=== PATIENT | female | born 1995 | race Caucasian/White ===

== ENCOUNTER 2021-02-10 10:03 | Inpatient (IN) | payer MEDICAID ==
[2021-02-10] MEDS ORDERED: Sodium Chloride 0.9% 10 ML Syringe FLUSH PRN (10:42)
[2021-02-10] MEDS ORDERED: Oxytocin/Lactated Ringers 10 UNIT/1,000 ML BAG IV SCH ×2 (10:45)
[2021-02-10] MEDS: Lactated Ringers 1,000 ML IV SCH ×3 (12:11→22:25)
--- NOTE | 2021-02-10 15:20 | PCM.LDHP ---
L&D History of Present Illness - General Date of Service: 02/10/21 Admit Problem/Dx: Patient Status Order with Admit Dx/Problem 02/10/21 10:48 Admission Status [Patient Status] [ADT] Routine Admission Diagnosis/Problem Admission Diagnosis/Problem Source of Information: Patient History Limitations: Reports: No Limitations - History of Present Illness Introduction:: Kenia Tran is a 25-year-old G1, P0 at 38 weeks 0 days (SUNIL 02/24/2021) by LMP consistent with early ultrasound who presents for evaluation in the setting of spontaneous rupture membranes. She reports that at around 5 AM she had a large gush of clear fluid with continuous leaking of fluid afterwards. She started having contractions that were about 10 to 12 minutes apart that would alternate between very strong and mild cramping. She denies any vaginal bleeding. Reports good movement. She was seen in the office yesterday, 02/09/2021, and was 1 cm dilated at that time. Timing/Duration: Reports: sudden onset (With large gush of fluid at 5 AM), constant/continuous (Leaking of fluid since initial gush of fluid), intermittent (Contractions every 10 to 12 minutes) Location, : Reports: Pelvic Quality: Reports: Pressure, Throbbing Severity: Moderate Improves with: Reports: None Worsens with: Reports: None Associated Symptoms: Reports: vaginal fluid, moderate amount. Denies: vaginal bleeding, vaginal discharge Present Illness Comments:: Kenia Tran is a 25-year-old G1, P0 at 38 weeks 0 days (SUNIL 02/24/2021) by LMP consistent with early ultrasound who presents with spontaneous rupture membranes. She started care in [place] and transferred care to Dr. Gonzalez at 28 weeks gestational age. Her has been overall uncomplicated but she did have an elevated 1 hour glucose tolerance test within normal 3-hour glucose tolerance test. Patient had echocardiogram done that was normal due to a history of ASD repair when she was an infant. echocardiogram was normal. She was followed by Dr. Bosch due to the history of ASD repair. She received Tdap vaccine on 12/08/2020. Her is complicated by: * Patient with personal history of ASD that was repaired as an at age 5. No significant abnormalities noted on echocardiogram for the patient without any evidence of pulmonary hypertension. Normal echocardiogram done during this . * Elevated 1 hour glucose tolerance test with normal 3-hour glucose tolerance test ENVIRONMENTAL HEALTH SAFETY ENGINEER history G1: Current labs Blood type: O+ Antibody screen: Negative First trimester hematocrit/hemoglobin: 41.0%/13.4 on 08/18/2020 Platelets: 348 on 08/18/2020 Rubella status: Immune Hepatitis B surface antigen: Negative RPR: Negative HIV: Negative Gonorrhea: Negative Chlamydia: Negative Genetic screening: Normal noninvasive genetic screening testing One hour glucose tolerance test: 145 Second trimester hemoglobin: 11.4 on 01/05/2021 Platelets: 322 on 01/05/2021 3-hour glucose tolerance test: Fasting 88, 1 hour 163, 2-hour 127, 3-hour 98 GBS status: Negative - Related Data Allergies/Adverse Reactions: Allergies Allergy/AdvReac Type Severity Reaction Status Date / Time No Known Allergies Allergy Verified 02/10/21 10:13 Home Medications: Home Meds Loratadine [Claritin] 10 mg PO DAILY 02/10/21 [History] #103/Iron Fumarate/Fa [ ] 1 each PO DAILY 02/10/21 [History] Past Medical History Cardiovascular History: Reports: Other (See Below) Other Cardiovascular History: ASD repair age 5 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: : 1 Para: 0 - Past Surgical History HEENT Surgical History: Reports: Adenoidectomy, Tonsillectomy Cardiovascular Surgical History: Reports: Other (See Below) Other Cardiovascular Surgeries/Procedures: ASD repair age 5 Social & Family History - Family History Family Medical History: No Pertinent Family History - Tobacco Use Tobacco Use Status *Q: Never Tobacco User Second Hand Smoke Exposure: No - Tobacco Core Measures Tobacco Use/Smoking Within Last 30 Days: No Smokeless Tobacco Use in Last 30 Days: Yes Smokeless Tobacco Use History: Other (Nicotine pouches) Desires Tobacco Cessation Medication: Refuses FDA Approved Med - Caffeine Use Caffeine Use: Reports: None - Alcohol Use Alcohol Use History: No Alcohol Use in Last Twelve Months: No - Recreational Drug Use Recreational Drug Use: No - Living Situation & Occupation Living situation: Reports: , with Spouse H&P Review of Systems - Review of Systems: Review Of Systems: See Below General: Denies: Fever, Chills, Malaise, Weakness, Fatigue HEENT: Denies: Headaches, Rhinitis, Post Nasal Drip, Sinus Congestion, Sore Throat, Visual Changes Pulmonary: Denies: Shortness of Breath, Wheezing, Pleuritic Chest Pain, Cough Cardiovascular: Denies: Chest Pain, Palpitations, Dyspnea on Exertion, Orthopnea Gastrointestinal: Denies: Abdominal Pain, Constipation, Diarrhea, Nausea, Vo miting Genitourinary: Denies: Dysuria, Frequency, Burning, Pain, Urgency Musculoskeletal: Reports: Back Pain (And hip pain of ) Skin: Denies: Rash, Lesions Psychiatric: Denies: Depression, Anxiety L&D Exam - Exam Exam: See Below - Vital Signs Vital Signs: Last Vital Signs Temp 36.9 C 02/10/21 10:14 Pulse 92 02/10/21 10:14 Resp 15 02/10/21 10:14 BP 128/83 02/10/21 10:14 Pulse Ox 98 02/10/21 10:14 Weight: 100.244 kg - OB Specific Contraction Duration (sec): 45-60 Contraction Frequency (min): 2-4 Contraction Intensity: Moderate Movement: Active Heart Tones: Present Heart Tones per Min: 130 (+15 x 15 accelerations, no decelerations) Heart Rate (FHR) Variability: Moderate (6-25 bmp) Presentation: Vertex Estimated Weight: 7.5-8 pounds by Obed - Vergara Score Vergara Score Cervix Position: Anterior Vergara Score Consistency: Soft Vergara Score Effacement: >80% (90%) Vergara Score Dilation: 1-2 cm (2 cm) Vergara Score Infant's Station: -2 Vergara Score Total: 9 - Exam General: Alert, Oriented HEENT: Conjunctiva Clear, EOMI Neck: Supple, Trachea Midline Lungs: Clear to Auscultation, Normal Respiratory Effort Cardiovascular: Regular Rate, Regular Rhythm GI/Abdominal Exam: Soft, Non-Tender, No Distention, Other (Gravid). No: Guarding, Rigid, Rebound Genitourinary: Normal external exam Extremities: Normal Inspection, No Pedal Edema Skin: Warm, Dry, Intact Psychiatric: Alert, Normal Affect, Normal Mood - Patient Data Lab Results Last 24 hrs: Laboratory Results - last 24 hr 02/10/21 02/10/21 02/10/21 Range/Units 10:42 11:05 11:13 WBC 9.82 (3.98-10.04) K/mm3 RBC 4.06 (3.98-5.22) M/mm3 Hgb 11.2 (11.2-15.7) gm/dl Hct 34.5 (34.1-44.9) % MCV 85.0 (79.4-94.8) fl MCH 27.6 (25.6-32.2) pg MCHC 32.5 (32.2-35.5) g/dl RDW Std Deviation 40.6 (36.4-46.3) fL Plt Count 312 (182-369) K/mm3 MPV 9.5 (9.4-12.3) fl Neut % (Auto) 73.8 H (34.0-71.1) % Lymph % (Auto) 16.1 L (19.3-51.7) % [place] % (Auto) 8.2 (4.7-12.5) % Eos % (Auto) 1.1 (0.7-5.8) Baso % (Auto) 0.2 (0.1-1.2) % Neut # (Auto) 7.24 H (1.56-6.13) K/mm3 Lymph # (Auto) 1.58 (1.18-3.74) K/mm3 [place] # (Auto) 0.81 H (0.24-0.36) K/mm3 Eos # (Auto) 0.11 (0.04-0.36) K/mm3 Baso # (Auto) 0.02 (0.01-0.08) K/mm3 SARS-CoV-2 RNA (AMINAH) Negative (NEGATIVE) Blood Type O POSITIVE Gel Antibody Screen Negative Result Diagrams: 02/10/21 11:13 - Problem List (1) 38 weeks gestation of SNOMED Code(s): 34444065 ICD Code: Z3A.38 - 38 WEEKS GESTATION OF Status: Acute Current Visit: Yes (2) Obesity affecting SNOMED Code(s): 350730122691, 031841265670 ICD Code: O99.210 - OBESITY COMPLICATING , UNSPECIFIED TRIMESTER Status: Acute Current Visit: Yes (3) History of atrial septal defect SNOMED Code(s): 096012512 ICD Code: Z86.79 - PERSONAL HISTORY OF OTHER DISEASES OF THE CIRCULATORY SYSTEM Status: Acute Current Visit: Yes (4) History of atrial septal defect repair SNOMED Code(s): 305208705 ICD Code: Z87.74 - PERSONAL HISTORY OF CONGENITAL MALFORM OF HEART AND CIRC SYS Status: Acute Current Visit: Yes Problem List Initiated/Reviewed/Updated: Yes Orders Last 24hrs: Active Orders 24 hr Category Date Time Status Admission Status [Patient Status] [ADT] Routine ADT 02/10/21 10:48 Active Activity as Tolerated [RC] PFP Care 02/10/21 10:42 Active Communication Order [RC] ASDIRECTED Care 02/10/21 10:42 Active Heart Tones [RC] ASDIRECTED Care 02/10/21 10:45 Active Non Stress Test [RC] PER UNIT ROUTINE Care 02/10/21 10:14 Active Notify Provider [RC] PFP Care 02/10/21 10:42 Active Notify Provider [RC] PRN Care 02/10/21 10:42 Active Peripheral IV Care [RC] . DIRECTED Care 02/10/21 10:45 Active Pump Management, Intrathecal [RC] ASDIRECTED Care 02/10/21 10:45 Active Urinary Catheter Assessment [RC] ASDIRECTED Care 02/10/21 10:42 Active Vital Signs [RC] PER UNIT ROUTINE Care 02/10/21 10:14 Active Regular Diet [DIET] Diet 02/10/21 Breakfast Active PATIENT RETYPE [BBK] Routine Lab 02/10/21 12:36 Ordered RAPID PLASMA REAGIN,RPR [CHEM] Routine Lab 02/10/21 10:42 Ordered Lactated Ringers [Ringers, Lactated] 1,000 ml Med 02/10/21 10:45 Active IV ASDIRECTED Nalbuphine [Nubain] Med 02/10/21 10:42 Active 10 mg IVPUSH Q2H PRN Oxytocin/Lactated Ringers [Pitocin in LR 10 Units/1,000 Med 02/10/21 10:45 Active ML] 10 unit in 1,000 ml IV .CONTINUOUS Oxytocin/Lactated Ringers [Pitocin in LR 10 Units/1,000 Med 02/10/21 10:45 Active ML] 10 unit in 1,000 ml IV TITRATE Sodium Chloride 0.9% [Saline Flush] Med 02/10/21 10:42 Active 10 ml FLUSH ASDIRECTED PRN Electronic Heart Tones Ext w TOCO [WOMSER] Oth 02/10/21 10:42 Ordered Routine Peripheral IV Insertion Adult [OM.PC] Routine Oth 02/10/21 10:42 Ordered Resuscitation Status Routine Resus Stat 02/10/21 10:14 Ordered Medication Orders Lactated Ringer's (Ringers, Lactated) 1,000 mls @ 100 mls/hr IV ASDIRECTED FLORES Last Admin: 02/10/21 12:11 Dose: 100 mls/hr Documented by: BROOKE Oxytocin/Lactated Ringer's (Pitocin In Lr 10 Units/1,000 Ml) 10 unit in 1,000 mls @ 12 mls/hr IV TITRATE FLORES; Protocol Last Titration: 02/10/21 13:30 Dose: 6 munits/min, 36 mls/hr Documented by: Titration: 02/10/21 13:00 Dose: 4 munits/min, 24 mls/hr Documented by: Admin: 02/10/21 12:12 Dose: 2 munits/min, 12 mls/hr Documented by: BROOKE Oxytocin/Lactated Ringer's (Pitocin In Lr 10 Units/1,000 Ml) 10 unit in 1,000 mls @ 500 mls/hr IV .CONTINUOUS FLORES Nalbuphine HCl (Nalbuphine 10 Mg/1 Ml Vial) 10 mg IVPUSH Q2H PRN PRN Reason: Pain Sodium Chloride (Sodium Chloride 0.9% 10 Ml Syringe) 10 ml FLUSH ASDIRECTED PRN PRN Reason: Keep Vein Open Assessment/Plan Comment:: Kenia Tran is a 25-year-old female at 38 weeks 0 days with spontaneous rupture membranes complicated by history of ASD with repair at age 5 and no residual effects, elevated 1 hour glucose tolerance test with normal 3-hour glucose tolerance test and obesity in Refer to observation for spontaneous rupture of membranes Patient on Pitocin for augmentation of labor with minimal contractions on initial presentation Continuous monitoring Place IV and have Lactated Ringer's at 125 ml/hr May have small amounts of regular diet Activity as tolerated May have epidural as desired Plans to breast-feed after delivery Anticipate vaginal delivery unless otherwise indicated Kaden Ford MD 3:38 PM 02/10/2021
[2021-02-10] MEDS: Nalbuphine 10 MG/1 ML Vial IVPUSH PRN ×2 (17:35→21:00)
[2021-02-10] MEDS ORDERED: Ondansetron 4 MG/2 ML SDV IVPUSH PRN (18:44)
[2021-02-10] MEDS ORDERED: fentaNYL 100 MCG/2 ML SDV EPIDUR ONE (21:34)
[2021-02-10] MEDS ORDERED: diphenhydrAMINE 50 MG/ML SDV IVPUSH PRN (21:39)
[2021-02-10] MEDS ORDERED: ePHEDrine 50 MG/ML SDV IVPUSH PRN (21:39)
[2021-02-10] MEDS ORDERED: Bupivacaine/fentaNYL/NS 100 ML Bag EPIDUR SCH (21:45)
--- NOTE | 2021-02-10 22:18 | PCM.PREANE ---
Preanesthetic Assessment - Procedure Proposed Procedure: epidural - Anesthesia/Transfusion/Family Hx Anesthesia History: Prior Anesthesia Without Reaction Family History of Anesthesia Reaction: No Transfusion History: No Prior Transfusion(s) - Review of Systems General: Fatigue, Malaise Pulmonary: No Symptoms Cardiovascular: No Symptoms Gastrointestinal: Abdominal Pain (labor) Neurological: No Symptoms Other: Reports: None - Physical Assessment Vital Signs: Last Vital Signs Temp 36.9 C 02/10/21 10:14 Pulse 92 02/10/21 10:14 Resp 15 02/10/21 10:14 BP 128/83 02/10/21 10:14 Pulse Ox 98 02/10/21 10:14 Height: 1.6 m Weight: 100.244 kg ASA Class: 2 Mental Status: Alert & Oriented x3 Airway Class: Mallampati = 2 Dentition: Reports: Normal Dentition Thyro-Mental Finger Breadths: 3 Mouth Opening Finger Breadths: 3 ROM/Head Extension: Full Lungs: Clear to Auscultation, Normal Respiratory Effort Cardiovascular: Regular Rate, Regular Rhythm - Lab Values: Laboratory Last Values WBC 9.82 K/mm3 (3.98-10.04) 02/10/21 11:13 RBC 4.06 M/mm3 (3.98-5.22) 02/10/21 11:13 Hgb 11.2 gm/dl (11.2-15.7) 02/10/21 11:13 Hct 34.5 % (34.1-44.9) 02/10/21 11:13 MCV 85.0 fl (79.4-94.8) 02/10/21 11:13 MCH 27.6 pg (25.6-32.2) 02/10/21 11:13 MCHC 32.5 g/dl (32.2-35.5) 02/10/21 11:13 RDW Std Deviation 40.6 fL (36.4-46.3) 02/10/21 11:13 Plt Count 312 K/mm3 (182-369) 02/10/21 11:13 MPV 9.5 fl (9.4-12.3) 02/10/21 11:13 Neut % (Auto) 73.8 % (34.0-71.1) H 02/10/21 11:13 Lymph % (Auto) 16.1 % (19.3-51.7) L 02/10/21 11:13 [place] % (Auto) 8.2 % (4.7-12.5) 02/10/21 11:13 Eos % (Auto) 1.1 (0.7-5.8) 02/10/21 11:13 Baso % (Auto) 0.2 % (0.1-1.2) 02/10/21 11:13 Neut # (Auto) 7.24 K/mm3 (1.56-6.13) H 02/10/21 11:13 Lymph # (Auto) 1.58 K/mm3 (1.18-3.74) 02/10/21 11:13 [place] # (Auto) 0.81 K/mm3 (0.24-0.36) H 02/10/21 11:13 Eos # (Auto) 0.11 K/mm3 (0.04-0.36) 02/10/21 11:13 Baso # (Auto) 0.02 K/mm3 (0.01-0.08) 02/10/21 11:13 SARS-CoV-2 RNA (AMINAH) Negative (NEGATIVE) 02/10/21 11:05 Blood Type O POSITIVE 02/10/21 10:42 Gel Antibody Screen Negative 02/10/21 10:42 - Allergies Allergies/Adverse Reactions: Allergies Allergy/AdvReac Type Severity Reaction Status Date / Time No Known Allergies Allergy Verified 02/10/21 10:13 - Anesthesia Plan Pre-Op Medication Ordered: None - Acknowledgements Anesthesia Type Planned: Epidural Pt an Appropriate Candidate for the Planned Anesthesia: Yes Alternatives and Risks of Anesthesia Discussed w Pt/Guardian: Yes Pt/Guardian Understands and Agrees with Anesthesia Plan: Yes PreAnesthesia Questionnaire Cardiovascular History: Reports: Other (See Below) Other Cardiovascular History: ASD repair age 5 Gastrointestinal History: Reports: GERD 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: - Past Surgical History HEENT Surgical History: Reports: Adenoidectomy, Tonsillectomy Cardiovascular Surgical History: Reports: Other (See Below) Other Cardiovascular Surgeries/Procedures: ASD repair age 5 - SUBSTANCE USE Tobacco Use Status *Q: Never Tobacco User Second Hand Smoke Exposure: No Recreational Drug Use History: No - HOME MEDS Home Medications: Home Meds Loratadine [Claritin] 10 mg PO DAILY 02/10/21 [History] #103/Iron Fumarate/Fa [ ] 1 each PO DAILY 02/10/21 [History] - CURRENT (IN HOUSE) MEDS Current Meds: Current Medications Diphenhydramine HCl (Diphenhydramine 50 Mg/Ml Sdv) 25 mg IVPUSH Q6H PRN PRN Reason: pruritis Ephedrine Sulfate (Ephedrine 50 Mg/Ml Sdv) 5 mg IVPUSH ASDIRECTED PRN PRN Reason: Hypotension Fentanyl/Bupivacaine HCl (Bupivacaine/Fentanyl/Ns 100 Ml Bag) 100 ml EPIDUR ASDIRECTED FLORES Last Admin: 02/10/21 22:08 Dose: 100 ml Documented by: Lactated Ringer's (Ringers, Lactated) 1,000 mls @ 100 mls/hr IV ASDIRECTED FLORES Last Infusion: 02/10/21 21:22 Dose: 500 mls/hr Documented by: Oxytocin/Lactated Ringer's (Pitocin In Lr 10 Units/1,000 Ml) 10 unit in 1,000 mls @ 12 mls/hr IV TITRATE FLORES; Protocol Last Titration: 02/10/21 21:50 Dose: 10 munits/min, 60 mls/hr Documented by: Oxytocin/Lactated Ringer's (Pitocin In Lr 10 Units/1,000 Ml) 10 unit in 1,000 mls @ 500 mls/hr IV .CONTINUOUS FLORES Nalbuphine HCl (Nalbuphine 10 Mg/1 Ml Vial) 10 mg IVPUSH Q2H PRN PRN Reason: Pain Last Admin: 02/10/21 21:00 Dose: 10 mg Documented by: Ondansetron HCl (Ondansetron 4 Mg/2 Ml Sdv) 4 mg IVPUSH Q8H PRN PRN Reason: Nausea Last Admin: 02/10/21 20:19 Dose: 4 mg Documented by: Sodium Chloride (Sodium Chloride 0.9% 10 Ml Syringe) 10 ml FLUSH ASDIRECTED PRN PRN Reason: Keep Vein Open Discontinued Medications Fentanyl (Fentanyl 100 Mcg/2 Ml Sdv) 100 mcg EPIDUR ONETIME ONE Stop: 02/10/21 21:35
[2021-02-11] MEDS ORDERED: Witch Hazel Medicated Pads 40/Jar TOP PRN (04:30)
[2021-02-11] MEDS ORDERED: Acetaminophen 325 MG Tab PO PRN (04:30)
[2021-02-11] MEDS ORDERED: Benzocaine/Menthol 20%-0.5% Spray 56 GM Canister TOP PRN (04:30)
[2021-02-11] MEDS ORDERED: Oxytocin/Lactated Ringers 10 UNIT/1,000 ML BAG IV SCH (04:30)
[2021-02-11] MEDS ORDERED: Hydrocortisone Acetate 25 MG Supp RECTAL PRN (04:30)
--- NOTE | 2021-02-11 04:36 | PCM.DEL ---
L & D Note - General Info Date of Service: 02/11/21 Mother's Due Date: 02/24/21 - Delivery Note Labor: Spontaneous, Augmented by Oxytocin Cervical Ripening Method: Oxytocin Delivery Outcome: Livebirth Delivery Method: Spontaneous Vaginal Delivery-Single Presentation: Right Occiput Anterior (STU) Nuchal Cord: None Anesthesia Type: Epidural Amniotic Fluid Description: Clear Episiotomy Type: None Laceration: 2nd Degree (midline perineal laceration, repaired with 3-0 Vicryl) Suture type: Vicryl Suture size: 3-0 Placenta: Intact, Spontaneous Cord: 3 Vessels Estimated Blood Loss: 600 Resuscitation Needed: Yes : Suctioned, Bulb Syringe, Stimulated, Warmed, [place] Used, Warmer Used Provider: Lennox Victoria Score 1 min: 8 Score 5 min: 9 Second Stage Interventions: Reports: Pushing Effectively, Pushing, Stirrups/Leg Supports Delivery Comments (Free Text/Narrative):: Stage I: Kenia Tran was admitted for spontaneous rupture membranes at home. On admission her cervix was dilated to 1 cm. She was GBS negative. Patient had spontaneous rupture of membranes with clear fluid at home. She was started on Pitocin for augmentation of labor due to irregular contraction pattern after she arrived with spontaneous rupture membranes. She was given Nubain x2 doses IV for pain control. She was given an epidural for anesthesia. She progressed to complete and pushing. Due to the difficulty of monitoring the infant in the lithotomy position a scalp electrode was placed without difficulty. Stage II: On 02/11/2021 she had a normal vaginal delivery of a live female at 03:57. Apgars of 8 & 9. Weight of 2960 g (6 lbs 8.4 oz). Length of 19.0 inches. There was no nuchal cord. was delivered in STU position. The cord was doubly clamped and cut by father the . was placed on mother's abdomen. Stage III: She had a spontaneous delivery of an intact placenta in Hernandez presentation. Three vessel cord. She was given pitocin and fundal massage. She had a second-degree midline perineal laceration that was repaired with 3-0 Vicryl. Mom and baby were stable to recovery. EBL of 600 mL. Kaden Ford MD 4:35 AM 02/11/2021 - General Info Date of Service: 02/11/21 - Patient Data Vitals - Most Recent: Last Vital Signs Temp 36.9 C 02/10/21 10:14 Pulse 92 02/10/21 10:14 Resp 15 02/10/21 10:14 BP 128/83 02/10/21 10:14 Pulse Ox 98 02/10/21 10:14 Weight - Most Recent: 100.244 kg I&O - Last 24 Hours: Intake & Output 02/10/21 02/10/21 02/11/21 14:59 22:59 06:59 Intake Total 1000 Balance 1000 Lab Results Last 24 Hours: Laboratory Results - last 24 hr 02/10/21 02/10/21 02/10/21 Range/Units 10:42 11:05 11:13 WBC 9.82 (3.98-10.04) K/mm3 RBC 4.06 (3.98-5.22) M/mm3 Hgb 11.2 (11.2-15.7) gm/dl Hct 34.5 (34.1-44.9) % MCV 85.0 (79.4-94.8) fl MCH 27.6 (25.6-32.2) pg MCHC 32.5 (32.2-35.5) g/dl RDW Std Deviation 40.6 (36.4-46.3) fL Plt Count 312 (182-369) K/mm3 MPV 9.5 (9.4-12.3) fl Neut % (Auto) 73.8 H (34.0-71.1) % Lymph % (Auto) 16.1 L (19.3-51.7) % [place] % (Auto) 8.2 (4.7-12.5) % Eos % (Auto) 1.1 (0.7-5.8) Baso % (Auto) 0.2 (0.1-1.2) % Neut # (Auto) 7.24 H (1.56-6.13) K/mm3 Lymph # (Auto) 1.58 (1.18-3.74) K/mm3 [place] # (Auto) 0.81 H (0.24-0.36) K/mm3 Eos # (Auto) 0.11 (0.04-0.36) K/mm3 Baso # (Auto) 0.02 (0.01-0.08) K/mm3 SARS-CoV-2 RNA (AMINAH) Negative (NEGATIVE) Blood Type O POSITIVE Gel Antibody Screen Negative Med Orders - Current: Current Medications Acetaminophen (Acetaminophen 325 Mg Tab) 650 mg PO Q6H PRN PRN Reason: mild pain or fever Benzocaine/Menthol (Benzocaine/Menthol 20%-0.5% [place] 56 Gm Canister) 0 gm TOP ASDIRECTED PRN PRN Reason: Perineal Comfort Measure Hydrocortisone Acetate (Hydrocortisone Acetate 25 Mg Supp) 25 mg RECTAL BID PRN PRN Reason: Hemorrhoid pain Oxytocin/Lactated Ringer's (Pitocin In Lr 10 Units/1,000 Ml) 10 unit in 1,000 mls @ 100 mls/hr IV TITRATE [facility]; Protocol Ibuprofen (Ibuprofen 600 Mg Tab) 600 mg PO Q6H PRN PRN Reason: Mild pain or fever Prenat Multivit/[place]/Iron/Folic Ac ( Multivitamin With Calcium/Folic Acid/Iron Tab) 1 each PO DAILY [facility] Rafael Gary (Witch Cookie Medicated Pads 40/Jar) 1 pad TOP ASDIRECTED PRN PRN Reason: Perineal Comfort Measure Discontinued Medications Diphenhydramine HCl (Diphenhydramine 50 Mg/Ml Sdv) 25 mg IVPUSH Q6H PRN PRN Reason: pruritis Ephedrine Sulfate (Ephedrine 50 Mg/Ml Sdv) 5 mg IVPUSH ASDIRECTED PRN PRN Reason: Hypotension Last Admin: 02/10/21 23:22 Dose: 5 mg Documented by: Fentanyl (Fentanyl 100 Mcg/2 Ml Sdv) 100 mcg EPIDUR ONETIME ONE Stop: 02/10/21 21:35 Last Admin: 02/10/21 22:09 Dose: 100 mcg Documented by: Fentanyl/Bupivacaine HCl (Bupivacaine/Fentanyl/Ns 100 Ml Bag) 100 ml EPIDUR ASDIRECTED [facility] Last Admin: 02/10/21 22:08 Dose: 100 ml Documented by: Lactated Ringer's (Ringers, Lactated) 1,000 mls @ 100 mls/hr IV ASDIRECTED [facility] Last Admin: 02/10/21 22:25 Dose: 500 mls/hr Documented by: Oxytocin/Lactated Ringer's (Pitocin In Lr 10 Units/1,000 Ml) 10 unit in 1,000 mls @ 12 mls/hr IV TITRATE [facility]; Protocol Last Titration: 02/11/21 03:57 Dose: 83.33 munits/min, 500 mls/hr Documented by: Oxytocin/Lactated Ringer's (Pitocin In Lr 10 Units/1,000 Ml) 10 unit in 1,000 mls @ 500 mls/hr IV .CONTINUOUS [facility]OR[facility] Nalbuphine HCl (Nalbuphine 10 Mg/1 Ml Vial) 10 mg IVPUSH Q2H PRN PRN Reason: Pain Last Admin: 02/10/21 21:00 Dose: 10 mg Documented by: Ondansetron HCl (Ondansetron 4 Mg/2 Ml Sdv) 4 mg IVPUSH Q8H PRN PRN Reason: Nausea Last Admin: 02/10/21 20:19 Dose: 4 mg Documented by: Sodium Chloride (Sodium Chloride 0.9% 10 Ml Syringe) 10 ml FLUSH ASDIRECTED PRN PRN Reason: Keep Vein Open - Problem List & Annotations (1) 38 weeks gestation of SNOMED Code(s): 68092641 Code(s): Z3A.38 - 38 WEEKS GESTATION OF Status: Acute Current Visit: Yes (2) Obesity affecting SNOMED Code(s): 208641628001, 637163346978 Code(s): O99.210 - OBESITY COMPLICATING , UNSPECIFIED TRIMESTER Status: Acute Current Visit: Yes (3) History of atrial septal defect SNOMED Code(s): 042640295 Code(s): Z86.79 - PERSONAL HISTORY OF OTHER DISEASES OF THE CIRCULATORY SYSTEM Status: Acute Current Visit: Yes (4) History of atrial septal defect repair SNOMED Code(s): 044055473 Code(s): Z87.74 - PERSONAL HISTORY OF CONGENITAL MALFORM OF HEART AND CIRC SYS Status: Acute Current Visit: Yes (5) Vaginal delivery SNOMED Code(s): 008770865 Code(s): O80 - ENCOUNTER FOR FULL-TERM UNCOMPLICATED DELIVERY Status: Acute Current Visit: Yes - Problem List Review Problem List Initiated/Reviewed/Updated: Yes - My Orders Last 24 Hours: My Active Orders 02/10/21 10:14 Resuscitation Status Routine 02/10/21 10:45 Heart Tones [RC] ASDIRECTED Pump Management, Intrathecal [RC] ASDIRECTED 02/11/21 04:30 Acetaminophen [TylenoL] 650 mg PO Q6H PRN Benzocaine/Menthol [Dermoplast Pain Relief [place]] See Dose Instructions TOP ASDIRECTED PRN Hydrocortisone Acetate [Anucort-HC] 25 mg RECTAL BID PRN Ibuprofen [Motrin] 600 mg PO Q6H PRN Oxytocin/Lactated Ringers [Pitocin in LR 10 Units/1,000 ML] 10 unit in 1,000 ml IV TITRATE witch Cookie [Tucks] 1 pad TOP ASDIRECTED PRN Heat Therapy [OM.PC] PRN 02/11/21 04:30 Patient Status [ADT] Routine Activity as Tolerated [RC] PER UNIT ROUTINE May Shower [RC] ASDIRECTED Notify Provider Vital Signs [RC] ASDIRECTED Vital Signs [RC] ASDIRECTED Assess Lochia [WOMSER] Per Unit Routine Assess Uterine Involution [WOMSER] Per Unit Routine Breast Pump [WOMSER] Per Unit Routine Ice Therapy [OM.PC] Per Unit Routine Medication Administration Instruction [OM.PC] Routine Perineal Care [OM.PC] Per Unit Routine Peripheral IV Discontinue [OM.PC] Routine Sitz Bath [OM.PC] Per Unit Routine 02/11/21 Breakfast Regular Diet [DIET] 02/11/21 09:00 Vit with Ca/FA/Iron [ Plus Iron] 1 each PO DAILY 02/11/21 12:00 CBC WITH AUTO DIFF [HEME] Timed 02/12/21 04:30 Heat Therapy [OM.PC] PRN - Plan Plan:: Kenia Tran is a 25-year-old now -0-0-1 female status post , PPD #0, complicated by history of ASD with repair at age 5 and no residual effects, elevated 1 hour glucose tolerance test with normal 3-hour glucose tolerance test and obesity in Admit to inpatient following normal spontaneous vaginal delivery Continue Pitocin per unit protocol following delivery of placenta and lactated Ringer's until tolerating regular diet Regular diet Vitals per unit routine Ibuprofen and Tylenol for pain control Assist with breast-feeding as needed Continue to monitor lochia Anticipate discharge home on day #2 Kaden Ford MD 4:35 AM 02/11/2021
[2021-02-11] MEDS: Ibuprofen 600 MG Tab PO PRN ×2 (05:15→20:18)
[2021-02-11] MEDS ORDERED: Bupivacaine 0.25% 10 ML SDV ONE (11:00)
--- NOTE | 2021-02-11 11:36 | PCM48HPAN ---
Post Anesthesia Note - EVALUATION WITHIN 48HRS OF ANESTHETIC Vital Signs in Normal Range: Yes Patient Participated in Evaluation: Yes Respiratory Function Stable: Yes Airway Patent: Yes Cardiovascular Function Stable: Yes Hydration Status Stable: Yes Pain Control Satisfactory: Yes Nausea and Vomiting Control Satisfactory: Yes Mental Status Recovered: Yes Vital Signs: Last Vital Signs Temp 36.7 C 02/11/21 07:58 Pulse 77 02/11/21 07:58 Resp 15 02/11/21 07:58 BP 105/51 L 02/11/21 07:58 Pulse Ox 98 02/11/21 07:58 - COMMENTS/OBSERVATIONS Free Text/Narrative:: no anesthesia complications noted
[2021-02-11] MEDS: Prenatal Multivitamin with Calcium/Folic Acid/Iron Tab PO SCH (14:09)
[2021-02-12] MEDS: Prenatal Multivitamin with Calcium/Folic Acid/Iron Tab PO SCH (08:05)
--- NOTE | 2021-02-12 08:42 | PCM.DCSUM1 ---
Discharge Summary - Hospital Course Free Text/Narrative:: Kenia 25-year-old 1 now para 1-0-0-1 white female who is admitted at 38-0/7 weeks gestational age with spontaneous rupture of membranes. Her labor course is as follows: Stage I: Kenia Tran was admitted for spontaneous rupture membranes at home. On admission her cervix was dilated to 1 cm. She was GBS negative. Patient had spontaneous rupture of membranes with clear fluid at home. She was started on Pitocin for augmentation of labor due to irregular contraction pattern after she arrived with spontaneous rupture membranes. She was given Nubain x2 doses IV for pain control. She was given an epidural for anesthesia. She progressed to complete and pushing. Due to the difficulty of monitoring the infant in the lithotomy position a scalp electrode was placed without difficulty. Stage II: On 02/11/2021 she had a normal vaginal delivery of a live female infant at 03:57. Apgars of 8 & 9. Weight of 2960 g (6 lbs 8.4 oz). Length of 19.0 inches. There was no nuchal cord. Infant was delivered in STU position. The cord was doubly clamped and cut by father the infant. was placed on mother's abdomen. Stage III: She had a spontaneous delivery of an intact placenta in Hernandez presentation. Three vessel cord. She was given pitocin and fundal massage. She had a second-degree midline perineal laceration that was repaired with 3-0 Vicryl. Mom and baby were stable to recovery. EBL of 600 mL. patient is nursing. She is ambulating well has minimal lochia, is voiding without concerns and has had normal vital signs. She is desiring discharge home. Diagnosis: Stroke: No - Discharge Data Discharge Date: 02/12/21 Discharge Disposition: Home, Self-Care 01 Condition: Good - Referral to Home Health Primary Care Physician: Starla Gonzalez MD - Patient Instructions Diet: Regular Diet as Tolerated (Nursing diet with increased calories and calcium as recommended) Activity: As Tolerated (No intercourse or tampons until bleeding resolves) Driving: May Drive Today Showering/Bathing: May Shower (May take a bath) Notify Provider of: Fever, Increased Pain, Swelling and Redness, Nausea and/or Vomiting - Discharge Plan Home Medications: Home Meds Loratadine [Claritin] 10 mg PO DAILY 02/10/21 [History] #103/Iron Fumarate/Fa [ ] 1 each PO DAILY 02/10/21 [History] Acetaminophen [Tylenol] 650 mg PO Q6H PRN tablet 02/12/21 [Rx] Ibuprofen [Motrin] 600 mg PO Q6H PRN tablet 02/12/21 [Rx] Referrals: Starla Gonzalez MD [Primary Care Provider] - ([facility]-2 to 4 weekspatient to call for an appointment.) - Discharge Summary/Plan Comment DC Time >30 min.: No Discharge Summary/Plan Comment: Discharge instructions: 1. Discharge home 2. Diet, activity and follow-up discussed with patient. Recommend nursing diet with increased calories and calcium. 3. Precautions given concern increased pain, bleeding, temperature, signs/symptoms of DVT/PE. 4. Medications per home medication was printed, discussed with and given to the patient. 5. [facility] [facility]4 weeks. Diagnosis: Term -delivered Condition: Good - Patient Data Vitals - Most Recent: Last Vital Signs Temp 36.7 C 02/12/21 04:32 Pulse 77 02/12/21 04:32 Resp 14 02/12/21 04:32 BP 122/83 02/12/21 04:32 Pulse Ox 97 02/12/21 04:32 Weight - Most Recent: 100.244 kg Lab Results - Last 24 hrs: Laboratory Results - last 24 hr 02/11/21 Range/Units 12:07 WBC 14.96 H (3.98-10.04) K/mm3 RBC 3.45 L (3.98-5.22) M/mm3 Hgb 9.6 L D (11.2-15.7) gm/dl Hct 29.7 L (34.1-44.9) % MCV 86.1 (79.4-94.8) fl MCH 27.8 (25.6-32.2) pg MCHC 32.3 (32.2-35.5) g/dl RDW Std Deviation 40.7 (36.4-46.3) fL Plt Count 255 (182-369) K/mm3 MPV 9.3 L (9.4-12.3) fl Neut % (Auto) 76.6 H (34.0-71.1) % Lymph % (Auto) 14.0 L (19.3-51.7) % [place] % (Auto) 8.5 (4.7-12.5) % Eos % (Auto) 0.3 L (0.7-5.8) Baso % (Auto) 0.1 (0.1-1.2) % Neut # (Auto) 11.47 H (1.56-6.13) K/mm3 Lymph # (Auto) 2.10 (1.18-3.74) K/mm3 [place] # (Auto) 1.27 H (0.24-0.36) K/mm3 Eos # (Auto) 0.04 (0.04-0.36) K/mm3 Baso # (Auto) 0.01 (0.01-0.08) K/mm3 Med Orders - Current: Current Medications Acetaminophen (Acetaminophen 325 Mg Tab) 650 mg PO Q6H PRN PRN Reason: mild pain or fever Benzocaine/Menthol (Benzocaine/Menthol 20%-0.5% [place] 56 Gm Canister) 0 gm TOP ASDIRECTED PRN PRN Reason: Perineal Comfort Measure Hydrocortisone Acetate (Hydrocortisone Acetate 25 Mg Supp) 25 mg RECTAL BID PRN PRN Reason: Hemorrhoid pain Ibuprofen (Ibuprofen 600 Mg Tab) 600 mg PO Q6H PRN PRN Reason: Mild pain or fever Last Admin: 02/11/21 20:18 Dose: 600 mg Documented by: Prenat Multivit/[place]/Iron/Folic Ac ( Multivitamin With Calcium/Folic Acid/Iron Tab) 1 each PO DAILY [facility] Last Admin: 02/12/21 08:05 Dose: 1 each Documented by: Rafael Gary (Rafael Gary Medicated Pads 40/Jar) 1 pad TOP ASDIRECTED PRN PRN Reason: Perineal Comfort Measure Discontinued Medications Diphenhydramine HCl (Diphenhydramine 50 Mg/Ml Sdv) 25 mg IVPUSH Q6H PRN PRN Reason: pruritis Ephedrine Sulfate (Ephedrine 50 Mg/Ml Sdv) 5 mg IVPUSH ASDIRECTED PRN PRN Reason: Hypotension Last Admin: 02/10/21 23:22 Dose: 5 mg Documented by: Fentanyl (Fentanyl 100 Mcg/2 Ml Sdv) 100 mcg EPIDUR ONETIME ONE Stop: 02/10/21 21:35 Last Admin: 02/10/21 22:09 Dose: 100 mcg Documented by: Fentanyl/Bupivacaine HCl (Bupivacaine/Fentanyl/Ns 100 Ml Bag) 100 ml EPIDUR ASDIRECTED [facility] Last Admin: 02/10/21 22:08 Dose: 100 ml Documented by: Lactated Ringer's (Ringers, Lactated) 1,000 mls @ 100 mls/hr IV ASDIRECTED [facility] Last Admin: 02/10/21 22:25 Dose: 500 mls/hr Documented by: Oxytocin/Lactated Ringer's (Pitocin In Lr 10 Units/1,000 Ml) 10 unit in 1,000 mls @ 12 mls/hr IV TITRATE [facility]; Protocol Last Titration: 02/11/21 03:57 Dose: 83.33 munits/min, 500 mls/hr Documented by: Oxytocin/Lactated Ringer's (Pitocin In Lr 10 Units/1,000 Ml) 10 unit in 1,000 mls @ 500 mls/hr IV .CONTINUOUS [facility] Oxytocin/Lactated Ringer's (Pitocin In Lr 10 Units/1,000 Ml) 10 unit in 1,000 mls @ 100 mls/hr IV TITRATE [facility]; Protocol Nalbuphine HCl (Nalbuphine 10 Mg/1 Ml Vial) 10 mg IVPUSH Q2H PRN PRN Reason: Pain Last Admin: 02/10/21 21:00 Dose: 10 mg Documented by: Ondansetron HCl (Ondansetron 4 Mg/2 Ml Sdv) 4 mg IVPUSH Q8H PRN PRN Reason: Nausea Last Admin: 02/10/21 20:19 Dose: 4 mg Documented by: Sodium Chloride (Sodium Chloride 0.9% 10 Ml Syringe) 10 ml FLUSH ASDIRECTED PRN PRN Reason: Keep Vein Open
== END 2021-02-12 15:50 | disposition home or self-care (01) | DRG 807 ==
LOC: JD.OBCHECK 10:03 → JD.OB 10:03 → JD.OBCHECK 10:48 → OBSVTOIN 02-11 03:57 → JD.OB 02-11 03:58
PROVIDERS: ADMIT Obstetrics & Gynecology; ATTEND Obstetrics & Gynecology
PROC: 10E0XZZ Delivery of Products of Conception, External Approach (ICD-10-PCS; principal; 2021-02-11)
PROC: 0KQM0ZZ Repair Perineum Muscle, Open Approach (ICD-10-PCS; 2021-02-11)
PROC: 3E0R3BZ Introduction of Anesthetic Agent into Spinal Canal, Percutaneous Approach (ICD-10-PCS; 2021-02-11)
DX: O99.214 Obesity complicating childbirth (principal); Z37.0 Single live birth; O70.1 Second degree perineal laceration during delivery; Z3A.38 38 weeks gestation of pregnancy; E66.9 Obesity, unspecified; O99.62 Diseases of the digestive system complicating childbirth; K21.9 Gastro-esophageal reflux disease without esophagitis; Z20.822 Contact with and (suspected) exposure to COVID-19
CPT/HCPCS: 36415; 51702; 59025; 59409; 85025; 86850; 86900; 86901; A9270-GY; J2300; J2405; J2590; J3010; J3490; J7120; U0002